=== PATIENT | female | born 1955 | race Caucasian/White ===

== ENCOUNTER 2017-05-25 08:09 | Outpatient (CLI) | payer BC ==
--- NOTE | 2017-05-26 10:10 | Ultrasound Report ---
AORTA SCREENING STUDY: 05/25/2017 CLINICAL HISTORY: Patient has coronary artery disease. Patient also has a history of abdominal aort ic aneurysm. Patient's mother and brother had abdominal aortic aneurysm. TECHNIQUE: Exam was done with [employer] color Doppler scanning system. FINDINGS: Proximal abdominal aorta AP measurement is 2.2 cm. Mid abdominal aorta diameters are 1.6 x 1.5 cm. Distal abdominal aortic diameters are 1.6 x 1.6 cm. Right common iliac artery diameters a re 1 x 1 cm. Left common iliac artery diameters are 1.1 x 1.1 cm. Mild plaque is noted in the abdom inal aorta. Normal vascular flow is seen in the abdominal aorta. No significant aneurysm or narrowi ng of the abdominal aorta is noted. IMPRESSION: NO SIGNIFICANT ABNORMALITY. JOB #: [id number] EXT JOB #:[id number]
== END 2017-05-25 08:10 | disposition home or self-care (01) ==
LOC: DI 08:09
PROVIDERS: ATTEND Internal Medicine Cardiovascular Disease
DX: I25.10 Atherosclerotic heart disease of native coronary artery without angina pectoris (principal); I25.2 Old myocardial infarction; E78.5 Hyperlipidemia, unspecified; Z82.49 Family history of ischemic heart disease and other diseases of the circulatory system
CPT/HCPCS: 76706

== ENCOUNTER 2019-10-11 15:52 | Outpatient (CLI) | payer MEDICARE, OTHER | END 2019-10-11 15:53 | disposition critical access hospital (66) | LOC: EMS 15:52 | PROVIDERS: ATTEND Surgery | DX: M79.602 Pain in left arm (principal) | CPT/HCPCS: A0425; A0427 ==

== ENCOUNTER 2019-10-11 16:26 | Emergency (ER) | payer BC, MEDICARE, OTHER ==
--- NOTE | 2019-10-11 16:41 | ED Physician Documentation ---
PD HPI CHEST PAIN - Stated complaint Stated Complaint: L ARM PX - Chief complaint Chief Complaint: Cardiac - History obtained from History obtained from: Patient - History of Present Illness Timing - onset: Other (64-year-old woman with history of atrial fibrillation on Xarelto and beta-nickie. For the last week she has had intermittent left arm pain. It is a soreness of the upper arm. When it happens it is not associate with chest pain, trouble breathing, nausea, sweats, fatigue. There is no particular pattern to it. It never wakes her up at night. It is not exertional. Today she was discussing this with her natural path and then became nauseous, that was not associated with left arm pain and was referred here for further evaluation and treatment.) Review of Systems Constitutional: reports: Reviewed and negative Throat: reports: Reviewed and negative Cardiac: reports: Reviewed and negative PD PAST MEDICAL HISTORY - Past Medical History Cardiovascular: None Respiratory: None Endocrine/Autoimmune: None GI: None : None HEENT: None Psych: Depression Musculoskeletal: Osteoarthritis, Scoliosis, Chronic back pain Derm: None - Past Surgical History Past Surgical History: Yes General: Colonoscopy, Other Ortho: Other - Present Medications Home Medications: Ambulatory Orders Medication Instructions Recorded Confirmed Atenolol 25 mg PO 09/26/13 09/26/13 Atorvastatin Calcium [Lipitor] 40 mg PO 09/26/13 09/26/13 Citalopram [CeleXA] 20 mg PO DAILY 09/26/13 09/26/13 Gabapentin [Neurontin] 300 mg PO HS 09/26/13 09/26/13 Aspirin [Aspir 81] 81 mg PO 09/27/13 09/27/13 Fenofibrate [Lipofen] 150 mg PO HS 09/27/13 09/27/13 traMADol [Ultram] 50 mg PO ONCE 09/27/13 09/27/13 Oxycodone HCl/Acetaminophen 1 each PO Q6HR PRN #16 tablet 07/08/16 [Percocet 5-325 mg Tablet] - Allergies Allergies/Adverse Reactions: Allergies Allergy/AdvReac Type Severity Reaction Status Date / Time Latex, Natural Rubber Allergy Mild Rash Verified 10/11/19 16:33 Penicillins Allergy Mild Rash Verified 10/11/19 16:33 - Social History Does the pt smoke?: No Smoking Status: Never smoker Does the pt drink ETOH?: Yes Does the pt have substance abuse?: No - Immunizations Immunizations are current?: Yes - POLST Patient has POLST: No PD ED PE NORMAL - Vitals Vital signs reviewed: Yes - General General: Alert and oriented X 3, No acute distress - Cardiac Cardiac: RRR, No murmur, Strong equal pulses (Radial) - Respiratory Respiratory: No respiratory distress, Clear bilaterally - Extremities Extremities: Other (There is some mild diffuse tenderness of the humeral area, full range of motion.) - Neuro Neuro: Alert and oriented X 3, Normal speech Results - Vitals Vitals: Vital Signs - 24 hr 10/11/19 10/11/19 10/11/19 16:29 16:33 17:06 Temperature 36.7 C Heart Rate 65 70 78 Respiratory 16 18 18 Rate Blood Pressure 150/83 H 140/75 H 134/83 H O2 Saturation 95 95 97 Oxygen O2 Source Room air - EKG (time done) 1634 Rate: Rate (enter#) (69) Rhythm: NSR [place]: Normal Intervals: Normal [place] QRS: Normal Ischemia: Normal ST segments Computer interpretation: Agree with computer - Labs Labs: Laboratory Tests 10/11/19 10/11/19 10/11/19 16:49 16:49 16:49 WBC 4.7 L RBC 4.54 Hgb 13.6 Hct 41.4 MCV 91.2 MCH 30.0 MCHC 32.9 RDW 13.0 Plt Count 201 MPV 9.3 Neut # (Auto) 3.1 Lymph # (Auto) 1.2 L [place] # (Auto) 0.4 Eos # (Auto) 0.0 Baso # (Auto) 0.0 Absolute Nucleated RBC 0.00 Nucleated RBC % 0.0 Sodium 140 Potassium 3.8 Chloride 102 Carbon Dioxide 27 Anion Gap 11.0 BUN 21 H Creatinine 0.8 Estimated GFR (MDRD) 72 L Glucose 119 H Calcium 9.3 Total Bilirubin 0.9 AST 20 ALT 18 Alkaline Phosphatase 57 Troponin I High Sens 2.4 Total Protein 7.2 Albumin 3.9 Globulin 3.3 Albumin/Globulin Ratio 1.2 Lipase 27 PD MEDICAL DECISION MAKING - ED course ED course: Given the lack of exertional components, the fleeting nature, the reproducibility, this is very unlikely to be an anginal equivalent. We will check an EKG and a troponin though. Departure - Departure Disposition: 01 Home, Self Care Clinical Impression: Left arm pain Condition: Good Record reviewed to determine appropriate education?: Yes Instructions: ED Chest Pain Atypical Unkn Cause Comments: Your cardiac work-up today was negative with a normal EKG and negative troponin. This makes this to be very unlikely to be related to coronary disease. Return for new or worsening symptoms. Follow-up with your primary care physician within the week.
[2019-10-11 16:55] LABS: BASOPHILS % (AUTO) 0.4 %; EOSINOPHILS % (AUTO) 0.9 %; HGB - HEMOGLOBIN 13.6 g/dL (12.0-16.0); LYMPHOCYTES # (AUTO) 1.2 10^3/uL (1.5-3.5); LYMPHOCYTES % (AUTO) 25.4 %; MEAN CORPUSCULAR HGB CONC 32.9 g/dL (32.0-36.0); MEAN CORPUSCULAR VOLUME 91.2 fL (81.0-99.0); MEAN PLATELET VOLUME 9.3 fL (7.9-10.8); MONOCYTES # (AUTO) 0.4 10^3/uL (0.0-1.0); MONOCYTES % (AUTO) 8.1 %; NEUTROPHILS # (AUTO) 3.1 10^3/uL (1.5-6.6); PLT - PLATELET COUNT 201 10^3/uL (130-450); RED BLOOD COUNT 4.54 10^6/uL (4.20-5.40); WHITE BLOOD COUNT 4.7 x10^3/uL (4.8-10.8)
[2019-10-11 17:14] LABS: ALBUMIN 3.9 g/dL (3.2-5.5); ALBUMIN/GLOBULIN RATIO 1.2 (1.0-2.2); BILIRUBIN,TOTAL 0.9 mg/dL (0.2-1.0); CALCIUM 9.3 mg/dL (8.5-10.3); CREATININE 0.8 mg/dL (0.4-1.0); TOTAL PROTEIN 7.2 g/dL (6.7-8.2)
[2019-10-11 17:53] VITALS: BP 121/74
== END 2019-10-11 17:57 | disposition home or self-care (01) ==
LOC: EDUNIT# → ED 16:26
DX: M79.602 Pain in left arm (principal)
CPT/HCPCS: 36415; 80053; 83690; 84484; 85025; 93005; 99282; 99283

== ENCOUNTER 2020-05-29 12:43 | Outpatient (CLI) | payer MEDICARE, OTHER ==
[2020-05-29 13:05] LABS: BASOPHILS % (AUTO) 0.2 %; EOSINOPHILS # (AUTO) 0.1 10^3/uL (0.0-0.7); EOSINOPHILS % (AUTO) 0.9 %; HGB - HEMOGLOBIN 15.4 g/dL (12.0-16.0); LYMPHOCYTES # (AUTO) 1.6 10^3/uL (1.5-3.5); LYMPHOCYTES % (AUTO) 29.4 %; MEAN CORPUSCULAR HEMOGLOBIN 31.6 pg (27.0-31.0); MEAN CORPUSCULAR VOLUME 92.8 fL (81.0-99.0); MONOCYTES # (AUTO) 0.4 10^3/uL (0.0-1.0); NEUTROPHILS # (AUTO) 3.2 10^3/uL (1.5-6.6); NEUTROPHILS % (AUTO) 61.3 %; PLT - PLATELET COUNT 244 10^3/uL (130-450); RED BLOOD COUNT 4.88 10^6/uL (4.20-5.40); WHITE BLOOD COUNT 5.3 x10^3/uL (4.8-10.8)
[2020-05-29 13:39] LABS: ALBUMIN 4.3 g/dL (3.2-5.5); ALBUMIN/GLOBULIN RATIO 1.2 (1.0-2.2); ALKALINE PHOSPHATASE 54 IU/L (42-121); ALT ALANINE AMINOTRANSFERASE 22 IU/L (10-60); AST ASPARTATE AMINOTRANSFERASE 21 IU/L (10-42); BILIRUBIN,TOTAL 1.3 mg/dL (0.2-1.0); BUN - BLOOD UREA NITROGEN 18 mg/dL (6-20); CALCIUM 9.4 mg/dL (8.5-10.3); CARBON DIOXIDE - CO2 27 mmol/L (21-32); CHLORIDE 100 mmol/L (101-111); CHOL/HDL RATIO 3.8 (<4.4); CHOLESTEROL 248 mg/dL; CREATININE 0.8 mg/dL (0.4-1.0); GLUCOSE 116 mg/dL (70-100); HDL CHOLESTEROL 66 mg/dL; LDL CHOLESTEROL,CALCULATED 140 mg/dL; LDL/HDL RATIO 2.1 (<4.4); SODIUM 139 mmol/L (135-145); TOTAL PROTEIN 7.9 g/dL (6.7-8.2); VLDL CHOLESTEROL 42 mg/dL
== END 2020-05-29 12:44 | disposition home or self-care (01) ==
LOC: LAB 12:43
PROVIDERS: ATTEND Internal Medicine Cardiovascular Disease
DX: I48.0 Paroxysmal atrial fibrillation (principal); I25.10 Atherosclerotic heart disease of native coronary artery without angina pectoris; R78.5 Finding of other psychotropic drug in blood
CPT/HCPCS: 36415; 80053; 80061; 82565; 83721; 85025

== ENCOUNTER 2021-06-02 10:42 | Outpatient (CLI) | payer MEDICARE, OTHER ==
[2021-06-02 11:10] LABS: CREATININE 0.8 mg/dL (0.4-1.0)
== END 2021-06-02 10:43 | disposition home or self-care (01) ==
LOC: LAB 10:42
PROVIDERS: ATTEND Internal Medicine Cardiovascular Disease
DX: I48.0 Paroxysmal atrial fibrillation (principal)
CPT/HCPCS: 36415; 82565

== ENCOUNTER 2023-11-10 18:07 | Emergency (ER) | payer MEDICARE, OTHER ==
--- NOTE | 2023-11-10 19:29 | ED Physician Documentation ---
History of Present Illness - Stated complaint Stated Complaint: FALL/BRUISED CHEST/LT THIGH - Chief complaint Chief Complaint: General - History obtained from History obtained from: Patient - Additonal information Additional information: Patient with history of A-fib anticoagulated on Xarelto had a ground-level fall on November 04. She is confident there was no dizziness or pre-syncope symptoms prior to falling and says she did not lose conciousness or hit head, and describes it as strictly mechanical. She fell onto her right hip. She is concerned about ongoing significant hematoma to the right hip and left breast. Today she notices that the border of the bruising is starting to spread and wanted someone to evaluate her bruises. PD PAST MEDICAL HISTORY - Past Medical History Past Medical History: Yes Cardiovascular: Coronary artery disease, Atrial fibrillation Respiratory: None Endocrine/Autoimmune: None GI: None : None HEENT: None Psych: Depression Musculoskeletal: Osteoarthritis, Scoliosis, Chronic back pain Derm: None - Past Surgical History Past Surgical History: Yes General: Colonoscopy, Other Ortho: Other - Present Medications Home Medications: Ambulatory Orders Medication Instructions Recorded Confirmed Atorvastatin Calcium [Lipitor] 40 mg PO 09/26/13 09/26/13 Citalopram [CeleXA] 20 mg PO DAILY 09/26/13 09/26/13 Gabapentin [Neurontin] 300 mg PO HS 09/26/13 09/26/13 atenoloL [Atenolol] 25 mg PO 09/26/13 09/26/13 Aspirin [Aspir 81] 81 mg PO 09/27/13 09/27/13 Fenofibrate [Lipofen] 150 mg PO HS 09/27/13 09/27/13 traMADol [Ultram] 50 mg PO ONCE 09/27/13 09/27/13 Oxycodone HCl/Acetaminophen 1 each PO Q6HR PRN #16 tablet 07/08/16 [Percocet 5-325 mg Tablet] - Allergies Allergies/Adverse Reactions: Allergies Allergy/AdvReac Type Severity Reaction Status Date / Time Latex, Natural Rubber Allergy Mild Rash Verified 10/11/19 16:33 Penicillins Allergy Mild Rash Verified 10/11/19 16:33 - Social History Does the pt smoke?: No Smoking Status: Never smoker Does the pt drink ETOH?: Yes Does the pt have substance abuse?: No - Immunizations Immunizations are current?: Yes - POLST Patient has POLST: No PD ED PE NORMAL - Vitals Vital signs reviewed: Yes - General General: Alert and oriented X 3 - HEENT HEENT: Atraumatic - Derm Derm: Other (significant hematoma to left lateral hip and moderate bruising to right anterior breast well healing.) - Extremities Extremities: No deformity, Normal ROM s pain, No edema - Neuro Neuro: Alert and oriented X 3 - Psych Psych: Normal mood Results - Vitals Vitals: Vital Signs - 24 hr 11/10/23 11/10/23 18:15 19:34 Temperature 36.5 C Heart Rate 98 77 Respiratory 18 15 Rate Blood Pressure 196/113 H 144/78 H O2 Saturation 99 100 Oxygen O2 Source Room air PD Medical Decision Making - ED course ED course: 68-year-old female presents to the emergency department for significant bruising/hematoma to left lateral hip and right anterior breast. The bruising overall appears to be healing well the patient was worried that the bruising is spreading. Patient was informed that while she is on anticoagulants it is normal for the bruising to take a lot longer to recover than normal and sometimes up to a month for the bruising to fully resolve but that there is no intervention warranted for her bruising/hematoma. She was taught to apply ice and do some gentle massaging over it to help break up the hematoma collection under her left lateral hip. Patient was reassured after speaking with provider and feels comfortable with the plan to discharge home. Departure - Departure Disposition: 01 Home, Self Care Clinical Impression: Hematoma, Fall Instructions: ED Hematoma Comments: Thank you for trusting us with your care I reevaluated your hematoma on your right breast and your left thigh and as we discussed I do not believe there is any reason to do any sort of imaging such as a CT scan that you are concerned about. You can alternate between 20 minutes of heat 20 minutes of ice and do some gentle massaging to help break up the hematoma that is collecting underneath her skin. Follow-up with your primary care provider as needed Forms: PCP List Discharge Date/Time: 11/10/23 19:35
[2023-11-10 19:40] VITALS: BP 144/78; O2SAT 100
== END 2023-11-10 19:35 | disposition home or self-care (01) ==
LOC: ED 18:07
DX: S70.01XA Contusion of right hip, initial encounter (principal); W19.XXXA Unspecified fall, initial encounter; I48.91 Unspecified atrial fibrillation; Z79.01 Long term (current) use of anticoagulants
CPT/HCPCS: 99281; 99282

== ENCOUNTER 2024-03-06 11:47 | Outpatient (CLI) | payer MEDICARE, OTHER ==
[2024-03-06 11:58] LABS: BASOPHILS % (AUTO) 0.2 %; EOSINOPHILS # (AUTO) 0.1 10^3/uL (0.0-0.7); EOSINOPHILS % (AUTO) 0.9 %; HCT - HEMATOCRIT 44.1 % (37.0-47.0); LYMPHOCYTES # (AUTO) 1.6 10^3/uL (1.5-3.5); LYMPHOCYTES % (AUTO) 29.1 %; MEAN CORPUSCULAR HEMOGLOBIN 28.8 pg (27.0-31.0); MEAN CORPUSCULAR HGB CONC 31.7 g/dL (32.0-36.0); MEAN CORPUSCULAR VOLUME 90.7 fL (81.0-99.0); MEAN PLATELET VOLUME 9.2 fL (7.9-10.8); MONOCYTES # (AUTO) 0.5 10^3/uL (0.0-1.0); MONOCYTES % (AUTO) 8.1 %; NEUTROPHILS # (AUTO) 3.4 10^3/uL (1.5-6.6); NEUTROPHILS % (AUTO) 61.5 %; PLT - PLATELET COUNT 257 10^3/uL (130-450); RED BLOOD COUNT 4.86 10^6/uL (4.20-5.40); RED CELL DISTRIBUTION WIDTH 13.2 % (12.0-15.0); WHITE BLOOD COUNT 5.5 x10^3/uL (4.8-10.8)
== END 2024-03-06 11:48 | disposition home or self-care (01) ==
LOC: LAB 11:47
PROVIDERS: ATTEND Internal Medicine Cardiovascular Disease
DX: I25.10 Atherosclerotic heart disease of native coronary artery without angina pectoris (principal); I48.0 Paroxysmal atrial fibrillation; I25.2 Old myocardial infarction; E78.5 Hyperlipidemia, unspecified
CPT/HCPCS: 36415; 85025

== ENCOUNTER 2024-04-15 10:33 | Outpatient (CLI) | payer MEDICARE, OTHER ==
[2024-04-15 10:42] LABS: BASOPHILS % (AUTO) 0.5 %; EOSINOPHILS # (AUTO) 0.1 10^3/uL (0.0-0.7); EOSINOPHILS % (AUTO) 0.6 %; HCT - HEMATOCRIT 44.3 % (37.0-47.0); HGB - HEMOGLOBIN 14.3 g/dL (12.0-16.0); LYMPHOCYTES # (AUTO) 1.8 10^3/uL (1.5-3.5); LYMPHOCYTES % (AUTO) 21.2 %; MEAN CORPUSCULAR HEMOGLOBIN 29.2 pg (27.0-31.0); MEAN CORPUSCULAR HGB CONC 32.3 g/dL (32.0-36.0); MEAN CORPUSCULAR VOLUME 90.6 fL (81.0-99.0); MEAN PLATELET VOLUME 9.1 fL (7.9-10.8); MONOCYTES # (AUTO) 0.6 10^3/uL (0.0-1.0); MONOCYTES % (AUTO) 6.9 %; NEUTROPHILS # (AUTO) 5.8 10^3/uL (1.5-6.6); NEUTROPHILS % (AUTO) 70.4 %; PLT - PLATELET COUNT 331 10^3/uL (130-450); RED BLOOD COUNT 4.89 10^6/uL (4.20-5.40); RED CELL DISTRIBUTION WIDTH 13.6 % (12.0-15.0); WHITE BLOOD COUNT 8.3 x10^3/uL (4.8-10.8)
[2024-04-15 11:02] LABS: CALCIUM 9.7 mg/dL (8.5-10.3); CREATININE 0.8 mg/dL (0.6-1.3); POTASSIUM 4.3 mmol/L (3.5-4.5)
== END 2024-04-15 10:34 | disposition home or self-care (01) ==
LOC: LAB 10:33
PROVIDERS: ATTEND Internal Medicine
DX: I48.0 Paroxysmal atrial fibrillation (principal)
CPT/HCPCS: 36415; 80048; 85025

== ENCOUNTER 2024-05-06 09:34 | Outpatient (CLI) | payer MEDICARE, OTHER ==
[2024-05-06 09:47] LABS: BASOPHILS % (AUTO) 0.6 %; EOSINOPHILS # (AUTO) 0.1 10^3/uL (0.0-0.7); HCT - HEMATOCRIT 42.2 % (37.0-47.0); HGB - HEMOGLOBIN 13.6 g/dL (12.0-16.0); LYMPHOCYTES # (AUTO) 1.4 10^3/uL (1.5-3.5); LYMPHOCYTES % (AUTO) 28.5 %; MEAN CORPUSCULAR HEMOGLOBIN 29.3 pg (27.0-31.0); MEAN CORPUSCULAR HGB CONC 32.2 g/dL (32.0-36.0); MEAN CORPUSCULAR VOLUME 90.9 fL (81.0-99.0); MEAN PLATELET VOLUME 9.2 fL (7.9-10.8); MONOCYTES # (AUTO) 0.4 10^3/uL (0.0-1.0); MONOCYTES % (AUTO) 8.3 %; NEUTROPHILS % (AUTO) 61.4 %; PLT - PLATELET COUNT 219 10^3/uL (130-450); RED BLOOD COUNT 4.64 10^6/uL (4.20-5.40); RED CELL DISTRIBUTION WIDTH 13.5 % (12.0-15.0); WHITE BLOOD COUNT 4.9 x10^3/uL (4.8-10.8)
[2024-05-06 10:16] LABS: CALCIUM 9.6 mg/dL (8.5-10.3); CREATININE 0.9 mg/dL (0.6-1.3); POTASSIUM 4.3 mmol/L (3.5-4.5)
== END 2024-05-06 09:35 | disposition home or self-care (01) ==
LOC: LAB 09:34
PROVIDERS: ATTEND Internal Medicine
DX: I48.0 Paroxysmal atrial fibrillation (principal)
CPT/HCPCS: 36415; 80048; 85025